=== PATIENT | female | born 1955 | race Caucasian/White ===

== ENCOUNTER 2023-07-16 11:00 | Inpatient (IN) | payer OTHER ==
[~2023-07-16] VITALS: Ht 160 cm; Wt 77.1 kg
[~2023-07-16 11:00] MED LIST: METFORMIN HCL500 MG PO
[2023-07-16] MEDS ORDERED: ENALAPRIL MALEAT5 MG PO (13:11)
[2023-07-24] MEDS ORDERED: ONDANSETRON HCL 2 MG/ML VIAL IV PRN (09:45)
[2023-07-24] MEDS ORDERED: OxyCODONE HCL/APAP UD (PERCOCET) PO PRN (09:45)
[2023-07-24] MEDS ORDERED: CEFAZOLIN SODIUM 1,000 MG VIAL ONE (10:24)
[2023-07-24] MEDS ORDERED: TRANEXAMIC ACID 100MG/1ML (1000MG) AMPUL IV ONE ×3 (10:24→11:15)
[2023-07-24] MEDS ORDERED: LIDOCAINE HCL 1%/Epi 20ML VIAL IJ ONE (11:15)
[2023-07-24] MEDS ORDERED: BUPIVACAINE HCL 30 ML VIAL IJ ONE (11:15)
[2023-07-24] MEDS ORDERED: CEFAZOLIN SODIUM 1,000 MG VIAL IV ONE (11:15)
[2023-07-24] MEDS ORDERED: MORPHINE SULFATE 4 MG/ML VIAL IV ONE (11:30)
[2023-07-24] MEDS ORDERED: MORPHINE SULFATE 4 MG/ML CARTRIDGE IV SCH (12:00)
[2023-07-24] MEDS ORDERED: CEFAZOLIN SODIUM 1,000 MG VIAL IV SCH (12:00)
[2023-07-24] MEDS ORDERED: ATORVASTATIN CA20 MG (13:14)
[2023-07-24] MEDS ORDERED: METFORMIN HCL500 M4 (13:14)
[2023-07-24] MEDS ORDERED: ORPHENADRINE CITRATE 100 MG TABLET PO SCH (21:00)
[2023-07-24] MEDS ORDERED: GABAPENTIN 100 MG CAPSULE PO SCH (21:00)
[2023-07-25 05:14] LABS: HEMATOCRIT 34.9 % (36.0-45.00); HEMOGLOBIN 11.6 g/dL (12.0-15.00); MEAN CELL VOLUME 87.1 fL (80.00-100.00); MEAN CORPUSCULAR HEMOGLOBIN 29.1 pg (27.00-32.0); MEAN CORPUSCULAR HGB CONC 33.4 g/dl (32.0-36.0); PLATELET COUNT 259 K/uL (150-450); RED CELL DISTRIBUTION WIDTH 12.9 % (11.5-14.5)
[2023-07-25] MEDS ORDERED: ENOXAPARIN SODIUM 30 MG/0.3 ML SYRINGE SUBCUTANEO SCH (09:00)
[2023-07-25] MEDS ORDERED: VITAMIN B COMPLEX 1 EACH PO SCH (13:00)
[2023-07-25] MEDS ORDERED: SOD FERRIC GLUC COMPLX/SUCROSE 62.5 MG/5 ML AMPUL IV SCH (13:00)
[2023-07-25] MEDS ORDERED: Cyanocobalamin/Mecobalamin 1 TAB.SL SL SCH (13:00)
[2023-07-26 07:05] LABS: HEMOGLOBIN 11.6 g/dL (12.0-15.00); MEAN CELL VOLUME 84.9 fL (80.00-100.00); PLATELET COUNT 246 K/uL (150-450); RED BLOOD COUNT 4.13 M/uL (4.00-6.00); RED CELL DISTRIBUTION WIDTH 12.7 % (11.5-14.5)
[2023-07-26] MEDS ORDERED: GABAPENTIN100 MG PO (12:24)
[2023-07-26] MEDS ORDERED: NORFLEX100MG PO (12:24)
[2023-07-26] MEDS ORDERED: OXYC1TAB9 PO (12:25)
[2023-07-26] MEDS ORDERED: XARELTO10 MG PO (12:25)
== END 2023-07-26 15:27 | DRG 470 ==
LOC: SURG 07-24 06:30 → O/R 07-24 06:30 → SURH 07-24 10:00 → SURG 07-24 14:25
PROVIDERS: ADMIT Orthopaedic Surgery; ATTEND Orthopaedic Surgery
PROC: 0SRD0JZ Replacement of Left Knee Joint with Synthetic Substitute, Open Approach (ICD-10-PCS; principal; 2023-07-24 10:00)
DX: M17.12 Unilateral primary osteoarthritis, left knee (principal); D62 Acute posthemorrhagic anemia; M85.662 Other cyst of bone, left lower leg